=== PATIENT | female | born 1955 | race Caucasian/White ===

== ENCOUNTER 2022-04-01 05:34 | Outpatient (CLI) | payer MEDICARE, OTHER ==
[~2022-04-01] VITALS: Ht 190.5 cm; Wt 113.6 kg
[2022-04-06] MEDS ORDERED: CINN500C2 PO (11:06)
[2022-04-06] MEDS ORDERED: OMEG1CAP58 PO (11:35)
[2022-04-06] MEDS ORDERED: EMPA25TA PO (11:36)
[2022-04-06] MEDS ORDERED: MECO10005 PO (11:36)
[2022-04-06] MEDS ORDERED: LISI5TAB20 PO (11:36)
[2022-04-06] MEDS ORDERED: ASPI-999 PO (11:36)
[2022-04-06] MEDS ORDERED: SEMA1PEN3 SQ (11:36)
[2022-04-06] MEDS ORDERED: ATOR40TA70 PO (11:36)
[2022-04-06] MEDS ORDERED: METF-397 PO (11:36)
== END 2022-04-06 13:30 | disposition home or self-care (01) ==
LOC: PREOP 05:34
PROVIDERS: ATTEND Otolaryngology Otolaryngology/Facial Plastic Surgery
DX: Z01.818 Encounter for other preprocedural examination (principal); J34.89 Other specified disorders of nose and nasal sinuses

== ENCOUNTER 2022-04-09 06:53 | Day surgery (SDC) | payer MEDICARE, OTHER ==
[~2022-04-09] VITALS: Ht 190.5 cm; Wt 113.6 kg
[2022-04-09] VITALS (9 sets, daily range): BP systolic 110–130; BP diastolic 64–81
[~2022-04-09 06:53] MED LIST: ASPI-999 PO; ATOR40TA70 PO; CINN500C2 PO; EMPA25TA PO; LISI5TAB20 PO; MECO10005 PO; METF-397 PO; OMEG1CAP58 PO; SEMA1PEN3 SQ
[2022-04-09] MEDS: LACTATED RINGERS 1,000 ML IV PRN ×2 (07:30→08:38)
[2022-04-09] MEDS ORDERED: MUPIROCIN 2% OINT 22 GM (BACTROBAN) TUBE ONE (07:35)
[2022-04-09] MEDS ORDERED: LIDOCAINE/EPI 1%-1:100,000 (XYLOCAINE) 20ML ONE (07:36)
[2022-04-09] MEDS ORDERED: ONDANSETRON 4 MG/2 ML (SDV) Z0FRAN ONE (07:37)
[2022-04-09] MEDS ORDERED: fentaNYL INJ 100 MCG/2 ML AMP ONE (07:37)
[2022-04-09] MEDS ORDERED: proPOfol 200 MG/20 ML (DIPRIVAN) VIAL IV ONE (07:37)
[2022-04-09] MEDS ORDERED: LIDOCAINE PF 2% 5 ML (XYLOCAINE) VIAL ONE (07:37)
[2022-04-09 07:45] LABS: BASOPHILS # (AUTO) 0.1 10^3/uL (0.0-0.1); BASOPHILS % (AUTO) 1 % (0-10); EOSINOPHILS # (AUTO) 0.4 10^3/uL (0.0-0.3); EOSINOPHILS % (AUTO) 6 % (0-10); HEMATOCRIT 48 % (35-52); HEMOGLOBIN 16.7 g/dL (11.5-16.0); LYMPHOCYTES # (AUTO) 2.5 10^3/uL (1.0-4.0); LYMPHOCYTES % (AUTO) 37 % (12-44); MEAN CORPUSCULAR HEMOGLOBIN 31 pg (25-34); MEAN CORPUSCULAR HGB CONC 35 g/dL (32-36); MEAN CORPUSCULAR VOLUME 88 fL (80-99); MEAN PLATELET VOLUME 9.3 fL (9.0-12.2); MONOCYTES # (AUTO) 0.6 10^3/uL (0.0-1.0); MONOCYTES % (AUTO) 9 % (0-12); NEUTROPHILS # (AUTO) 3.1 10^3/uL (1.8-7.8); NEUTROPHILS % (AUTO) 46 % (42-75); PLATELET COUNT 251 10^3/uL (130-400); WHITE BLOOD COUNT 6.8 10^3/uL (4.3-11.0)
--- NOTE | 2022-04-09 07:49 | Progress Note-Pre Operative ---
Pre-Operative Progress Note Date of Available H&P: Apr 09, 2022 Date H&P Reviewed: Apr 09, 2022 Time H&P Reviewed: 06:30 History & Physical: H&P Reviewed, Patient Examed, No changes noted Changes from last HP none Pre-Operative Diagnosis: Right Nasal Ala Lesion GELY GAN MD Apr 09, 2022 07:49
--- NOTE | 2022-04-09 07:50 | Progress Note-Post Operative ---
Post-Operative Progess Note Surgeon (s)/Information Technology Instructor (s) Surgeon GELY GAN MD Information Technology Instructor n/a Pre-Operative Diagnosis Right Nasal Ala Lesion Post-Operative Diagnosis same Post-Op Procedure Note Date of Procedure: Apr 09, 2022 Name of Procedure Performed: Excision of Right Nasal Alar Lesion, REconstruction with FTSG donor site right pre-auricular region Description & Findings Description and Findings: n/a Anesthesia Type get Estimated Blood Loss minimal Packing none. Specimen(s) collected/removed right nasal lesion GELY GAN MD Apr 09, 2022 07:50
[2022-04-09] MEDS ORDERED: HYDROcodone/APAP 5 MG/325 MG (LORTAB) TAB PO PRN (08:00)
[2022-04-09] MEDS ORDERED: ACETAMINOPHEN 325 MG TABLET PO PRN (08:00)
[2022-04-09 08:04] LABS: CALCIUM 9.5 MG/DL (8.5-10.1); CREATININE SERUM 1.15 MG/DL (0.60-1.30); POTASSIUM 4.1 MMOL/L (3.6-5.0)
[2022-04-09] MEDS ORDERED: SEVOFLURANE (ULTANE) 15 ML INHAL SOLN ONE (08:39)
[2022-04-09] MEDS ORDERED: ONDANSETRON 4 MG/2 ML (SDV) Z0FRAN IVP PRN (09:15)
[2022-04-09] MEDS ORDERED: fentaNYL INJ 100 MCG/2 ML AMP IVP ONE (09:15)
--- NOTE | 2022-04-09 09:15 | Anesthesia-General Post-Op ---
General Patient Condition Mental Status/LOC: Same as Preop Cardiovascular: Satisfactory Nausea/Vomiting: Absent Respiratory: Satisfactory Pain: Controlled Complications: Absent Post Op Complications Complications None Follow Up Care/Instructions Patient Instructions None needed. Anesthesia/Patient Condition Patient Condition Patient is doing well, no complaints, stable vital signs, no apparent adverse anesthesia problems. No complications reported per nursing. ROSETTA AC CRNA Apr 09, 2022 09:15
[2022-04-09] MEDS ORDERED: ACHD5005 PO (10:32)
[2022-04-09] MEDS ORDERED: CEPH500T PO (10:32)
== END 2022-04-09 11:05 | disposition home or self-care (01) ==
LOC: SDC 06:53
PROVIDERS: ATTEND Otolaryngology Otolaryngology/Facial Plastic Surgery
DX: C44.311 Basal cell carcinoma of skin of nose (principal); E66.9 Obesity, unspecified; Z68.31 Body mass index [BMI] 31.0-31.9, adult; Z28.310 Unvaccinated for COVID-19
CPT/HCPCS: 36415; 80048; 82947; 85025; 87081; 93005